=== PATIENT | female | born 1985 | race Caucasian/White ===

== ENCOUNTER 2020-05-05 14:25 | Emergency (ER) | payer OTHER ==
[2020-05-05 14:34] VITALS: BP 110/67; PULSE 71; TEMP 98; BMI 26.9
[2020-05-05 15:22] LABS: BASO % 0.3 % (0-2.0); EOS % 0.6 % (0-4.5); HEMOGLOBIN 13.5 GM/dL (10.7-15.3); LYMPH % 25.7 % (8-40); MCH 30.2 pg (25.7-33.7); MEAN CELL VOLUME 91.5 fl (80-96); MEAN PLT VOLUME 9.9 fl (7.5-11.1); MONO % 8.1 % (3.8-10.2); NEUT % 65.3 % (42.8-82.8); PLATELET COUNT 205 K/MM3 (134-434); RBC 4.48 M/mm3 (3.60-5.2); RDW 13.3 % (11.6-15.6); WHITE BLOOD COUNT 5.9 K/mm3 (4.0-10.0)
[2020-05-05 15:46] LABS: CHLORIDE 106 mmol/L (98-107); POTASSIUM 3.9 mmol/L (3.5-5.1); SODIUM 140 mmol/L (136-145)
[2020-05-05 15:49] LABS: ANION GAP 6 MMOL/L (8-16); BLOOD UREA NITROGEN 13.3 mg/dL (7-18); CALCIUM 9.4 mg/dL (8.5-10.1); CO2 28 mmol/L (21-32); GAMMA GLUTAMYL TRANSPEPTIDASE 12 U/L (5-85); GLUCOSE,RANDOM 105 mg/dL (74-106)
[2020-05-05 15:51] LABS: SGPT/ALT 24 U/L (13-61); URIC ACID 3.9 mg/dL (2.6-7.2)
[2020-05-05 15:52] LABS: CHOLESTEROL 149 mg/dL (50-200); PHOSPHOROUS 3.2 mg/dL (2.5-4.9); SGOT/AST 14 U/L (15-37)
[2020-05-05 15:53] LABS: BILIRUBIN,TOTAL 0.7 mg/dL (0.2-1); TOT PROT 6.9 g/dl (6.4-8.2); TRIGLYCERIDES 59 mg/dL (0-150)
[2020-05-05 15:54] LABS: ALK PHOS 47 U/L (45-117)
[2020-05-05 15:55] LABS: LDH 133 U/L (84-246)
[2020-05-05 16:45] LABS: HIV INTERPRETATION NEGATIVE (NEGATIVE)
== END 2020-05-05 15:16 | disposition home or self-care (01) ==
LOC: JER 14:25
DX: Z77.21 Contact with and (suspected) exposure to potentially hazardous body fluids (principal)
CPT/HCPCS: 36415; 80053; 82465; 82977; 83615; 84100; 84478; 84550; 84702; 85025; 86317; 86704; 86706; 86803; 87340; 87389; 99283-25